=== PATIENT | female | born 1990 | race Caucasian/White ===

== ENCOUNTER → 2021-02-25 11:15 | Outpatient (BNVA) | payer OTHER, SELFPAY | PROVIDERS: Visit Provider Emergency Medicine | DX: Z20.822 Contact with and (suspected) exposure to COVID-19 (principal) | CPT/HCPCS: 87635 ==

== ENCOUNTER 2021-09-16 12:04 | Outpatient (CLI) | payer MEDICAID, SELFPAY ==
[2021-09-16 12:32] VITALS: BMI 36.3
--- NOTE | 2021-09-16 12:35 | ECG_ITS ---
[facility] Test Date: 2021-09-16 Pat Name: Cesilia Menendez Department: Room: Gender: Female Manager Molecular: Alfreda Monterroso : 1990 Requested By: Gail Cornejo Order Number: [id number] Anna MD: Cristy Gandhi M.D. Interpretive Statements NAME OF STUDY: TREADMILL STRESS ECHOCARDIOGRAM INDICATION: Chest Pain, PROCEDURE: The baseline electrocardiogram showed normal sinus rhythm with normal ST-Ts. At the baseline, the patient's blood pressure was 101/62 mm Hg with a heart rate of 76. The patient exercised for 7 minutes and 1 seconds on a standard Reese protocol. Patient attained a maximum heart rate of 167 beats per minute(88% of the maximum predicted heart rate) with a blood pressure at the peak exercise of 164/84 mm Hg. The EKG at the peak exercise revealed no significant changes. Patient did not have any chest pain or any significant arrhythmis with the exercise Sestamibi was injected 1 minute prior to the peak exercise During the recovery phase, there were no new changes. Blood pressure at the end of the recovery phase was 105/58 mm Hg with a heart rate of 51 per minute. The echocardiographic pictures were taken at the baseline, peak exercise and during the recovery phase CONCLUSION: 1. Normal EKG response with the treadmill exercise 2. No exercise-induced chest pain or cardiac arrhythmia 3. Fair exercise tolerance, attained a maximum of 10.2 METs 4. The echocardiographic pictures were taken at the standard views. see separate report. Electronically Signed On 09-19-2021 13:18:21 CDT by Cristy Gandhi M.D. [id number]
--- NOTE | 2021-09-16 12:35 | USCV_ITS ---
Stress Echo Cesilia Menendez Age: 31 Gender: F : 1990 Exam Date: 09/16/2021 12:51 Ordering Phys: Gail Mccollum Technologist: Ivanna Hoff Exam Location: [facility] Indication: CHEST PAIN Rhythm: Sinus Patient History: Chest pain/pressure Cardiac Medications: Medications in past 24 hours: Contrast: Stress Results Protocol: Reese Total dose(mL): Exercise Duration (min:sec): 7:00 METS: 10.2 Resting HR: 74 Resting BP: 126 / 70 Peak HR: 167 Peak BP: 183 / 84 Max Predicted HR: 189 88 % Max Predicted HR Target HR: 161 Double Product: 04852 Stress Summary: The patient's target heart rate was achieved BP Response: Normal Reason for Termination: Maximal effort/unable to continue, Test terminated after reaching maximum heart rate Cardiac Symptoms: Chest pressure ECG Analysis Resting ECG: Please see separate report Stress ECG: Please see separate report Arrhythmia: Please see separate report MEASUREMENTS (Male/Female) Normal Values FINDINGS The baseline echocardiogram revealed normal LV size with ejection fraction of around 50 to 55%. Related hypokinesia of the septum was noted. With the peak exercise, there was good augmentation of all the segments with no exercise-induced wall motion abnormalities. During the recovery phase, the segmental wall motion reverted back to the baseline CONCLUSIONS 1. Normal echocardiographic response to exercise. 2. No significant coronary ischemia, based on the above findings. 3. For the EKG response to exercise, please refer to separate report Dr Cristy Gandhi MD [facility] (Electronically Signed) Final Date: 17 September 2021 17:27 S
[2021-09-16 13:37] VITALS: BP 105/58; PULSE 90
== END 2021-09-16 12:05 | disposition home or self-care (01) ==
LOC: CDL 12:07
PROVIDERS: Visit Provider Nurse Practitioner Family
DX: R07.89 Other chest pain (principal)
CPT/HCPCS: 93017; 93350

== ENCOUNTER → 2022-01-02 11:31 | Outpatient (BNVA) | payer MEDICAID, SELFPAY | PROVIDERS: Visit Provider Emergency Medicine | DX: R31.9 Hematuria, unspecified (principal) | CPT/HCPCS: 81000 ==

== ENCOUNTER 2025-04-19 00:11 | Emergency (ER) | payer OTHER, SELFPAY ==
--- OUTSIDE RECORDS SUMMARY | 2022-12-16 04:20 | XMS_ITS | Continuity of Care Document ---
Author Organization [facility] cine Address [address] [place] [address] Phone Care Team Providers Care Public Address System Mechanic Name Role Phone Eva Roth Unavailable Unavailable Procedures Procedure Date OFFICE/OUTPATIENT VISIT, EST Results Test Name Date and Time Measure Units Reference Range Abnormal Flag Status Commen ts Panel Description: [facility] COVID-19 Antigen Rapi d Test Final Covid 09:32:00 Neg NEG Final Advance Directives Directive Yes / No Effective Date File Name No Information Encounters Encounter Description Practice Location Reason(s) For Visit Diagnoses Date Provider Providers Copied on Encounter OFFICE/OUTPAT IENT VISIT, EST [facility], [address], [place], [id number], tel:[phone] [facility] Covid Test (chief complaint) Contact w and exposure to oth viral communicable diseases Radha Velasquez. [address] [place], [address], [place]. tel:[phone] Referring Provider: Eva Garcia [address] [place], [address]. tel:[phone] Family History Family Member Type Diagnosis Age At Onset No Information Payers Payer name Insurance type Covered alliance party ID Authorcarola marylinюлия(s) [employer] [id number] [place] Medicaid [id number] Social History Type Description Quantity Date Captured Comments Alcohol Use Details Unknown Caffeine Use Details Unknown Tobacco Use Status No Information Smoking Status No Information Sex Female Chief Complaint And Reason For Visit From encounter dated '12/16/2022 09:20'. Covid Test (chief complaint). Description: The symptoms began 1 day ago and generally lasts 1 Day. Pt presents to the office to have a covid test performed.. Symptoms started yesterday. Reason For Referral Reason For Referral No Information History Of Present Illness Encounter Date Complaint History Of Prese nt Illness Covid Test The symptoms beg an 1 day ago and generally lasts 1 Day. Pt presents to the office to have a covid test performed.. Symptoms started yesterday. Functional Status Date Functional Assessmen t No Information Instructions Date Instruction Additional Infor kashif Pt had a nasal swab performed. The results were negative. The pt was given a copy of the results. Related to Contact w and exposure to oth viral communicable diseases Assessments Type Assessment Date assessment Contact w and exposure to oth vi ral communicable diseases Patient Care Teams Name Effective Dates (start - stop) Status Members No Information
--- NOTE | 2025-04-19 00:30 | XRR_ITS ---
PROCEDURE INFORMATION: Exam: XR Left Ribs with PA Chest Exam date and time: 04/19/2025 12:39 AM Age: 34 years old Clinical indication: Injury or trauma; Fall; Rib area, left side; Blunt trauma TECHNIQUE: Imaging protocol: Radiologic exam of the left ribs with PA chest. Views: 3 views COMPARISON: No relevant prior studies available. FINDINGS: Lungs: Unremarkable. No consolidation. Pleural spaces: Unremarkable. No pleural effusion. No pneumothorax. Heart/Mediastinum: Unremarkable. No cardiomegaly. Bones/joints: Unremarkable. XR/XR ribs LT mn 3V w CXR1V [id number] IMPRESSION: No acute findings.
--- NOTE | 2025-04-19 00:30 | XRR_ITS ---
PROCEDURE INFORMATION: Exam: XR Left Hip Exam date and time: 04/19/2025 12:50 AM Age: 34 years old Clinical indication: Injury or trauma; Fall; Blunt trauma (contusions or hematomas); Left; Hip TECHNIQUE: Imaging protocol: Radiologic exam of the left hip. Views: 2 or 3 views hip with pelvis when performed. COMPARISON: No relevant prior studies available. FINDINGS: Bones/joints: Unremarkable. No acute fracture. Soft tissues: Unremarkable. XR/XR hip LT 2-3V wo/w pel* [id number] IMPRESSION: No acute findings. If high clinical concern for acute osseous injury is present, consider CT left hip without contrast to evaluate for occult osseous injury.
[2025-04-19 00:32] VITALS: BP 115/87; PULSE 83; RESP 20; TEMP 36.8; O2SAT 100; BMI 38.0
--- NOTE | 2025-04-19 00:33 | ED_ITS ---
HPI - Fall General: Chief Complaint: Fall Stated Complaint: fall on stairs landed ribs and tail bone Time Seen by Provider: 04/19/25 00:23 Source: patient Mode of arrival: ambulatory Limitations: no limitations History of Present Illness: 34-year-old female states that she had s lipped down stairs roughly 2 hours ago. States she landed on her left hip along with left posterior ribs states she has pain mainly in her left hip some mild pain left ribs. She denies any hitting her head she denies any neck pain denies any back pain. States she is able to ambulate but it hurts worse when she ambulates she rates her pain a 6 out of 10 currently it is improved with rest Related Data Previous Rx's ?Medication ?Instructions ?Recorded phenazopyridine 100 mg tablet 100 mg PO TID 6 doses #6 tabs 01/02/22 (Pyridium) sulfamethoxazole 800 1 tab PO BID 7 days #14 tabs 01/02/22 mg-trimethoprim 160 mg tablet naproxen 500 mg tablet (Naprosyn) 500 mg PO BID PRN pa in #20 tabs 04/19/25 Allergies Allergy/AdvReac Type Severity Reaction Status Date / Time codeine Allergy Mild itching Verified 04/19/25 00:41 Penicillins Allergy Mild hives Verified 04/19/25 00:41 prednisone Allergy Mild hives Verified 04/19/25 00:41 Review of Systems Musc: Reports: extremity pain PFS ED PFSH: Social History Smoking and tobacco/nicotine status: never used tobacco/nicotine Physical Exam Const: COMMON NORMALS: no acute distress, patient oriented x3 and healthy appearing HENMT: COMMON NORMALS: normocephalic and atraumatic HEAD & SCALP: normocephalic and atraumatic Neck/C-Spine: COMMON NORMALS: full ROM and supple Chest: COMMONS NORMALS: normal inspection of the chest OTHER: Tenderness to left lateral and posterior lower ribs Resp: COMMON NORMALS: normal respiratory effort, No retractions, No use of accessory muscles and clear to auscultation bilaterally AUSCULTATION: clear to auscultation bilaterally Cardio: COMMON NORMALS: regular rate RATE: regular rate GI: COMMON NORMALS: Normal to inspection, nondistended, normoactive bowel sounds present, Soft to palpation, non-tender and no masses PALPATION: Yes Soft to palpation Back/Pelvis: THORACIC SPINE/UPPER BACK: No thoracic spinal tenderness LUMBAR SPINE/LOWER BACK: No lumbar spinal tenderness Extremity: COMMON NORMALS: normal to inspection and full ROM NARRATIVE EXTREMITY EXAM: Tenderness to left lateral hip no obvious deformity Neuro: COMMON NORMALS: patient oriented x3, moves all extremities and no focal motor deficits Psych: COMMON NORMALS: mental status grossly normal, Normal thought process present and cooperative THOUGHT PROCESS: Normal thought process present Skin: COMMON NORMALS: no rashes or lesions noted and no wounds GENERAL SKIN EXAM: no rashes or lesions noted Course Vital Signs: Vital signs: Vital Signs Temperature 98.3 F 04/19/25 00:32 Pulse Rate 77 04/19/25 01:03 Respiratory Rate 20 H 04/19/25 00:32 Blood Pressure 117/82 04/19/25 01:03 Pulse Oximetry 98 04/19/25 01:03 MDM - Fall Medical Decision Making Patient presents after a fall down the steps landing on her left hip having some left hip and left-sided chest pain. Differential included hip dislocation, hip fracture, contusion, rib fracture. Patient no other injuries had no head neck or back pain images here I reviewed x-ray hip showed no acute fracture, x-ray ribs showed no acute fracture or pneumothorax. Likely has a hip contusion from the fall she is ambulatory here she is to rest ice we will prescribe her Naprosyn I did go over her x-ray findings and treatment she understands and agrees to plan Medical Records I reviewed the patient's medical records. Lab Data Radiology Impressions Hip/Pelvis X-Ray 04/19/25 00:30 IMPRESSION: No acute findings. If high clinical concern for acute osseous injury is present, consider CT left hip without contrast to evaluate for occult osseous injury. Ribs X-Ray 04/19/25 00:30 IMPRESSION: No acute findings. All radiology interpretation(s) finalized by discharge Discharge Plan Discharge Patient Disposition: Home Clinical Impression: Fall Contusion of left hip Qualifiers: Encounter type: initial encounter Qualified Code(s): S70.02XA - Contusion of left hip, initial encounter Condition: Stable Prescriptions: New naproxen [Naprosyn] 500 mg tablet 500 mg PO BID PRN (Reason: pain) Qty: 20 0RF No Action phenazopyridine [Pyridium] 100 mg tablet 100 mg PO TID Qty: 6 0RF sulfamethoxazole-trimethoprim 800-160 mg tablet 1 tab PO BID 7 Days Qty: 14 0RF Discharge Orders: Discharge ED (Routine); Ordered 04/19/25 Ordered By: Akash Rios Discharge Diet: Advance as tolerated Discharge Activity: Resume usual activity Patient Instructions: Hip Contusion (ED) Print Language: Citizen Of [place] Coding Level of Care Code ED Payable Representative for Delfino Warren
[2025-04-19] MEDS: HYDROcodone-acetaminophen 5-325 mg Tablet 1 TAB PO (00:51)
[2025-04-19 01:03] VITALS: BP 117/82; PULSE 77; O2SAT 98
[2025-04-19 01:20] VITALS: BP 117/82; PULSE 84; O2SAT 100
== END 2025-04-19 01:25 | disposition home or self-care (01) ==
PROVIDERS: Emergency Provider Emergency Medicine
DX: S70.02XA Contusion of left hip, initial encounter (principal); W10.9XXA Fall (on) (from) unspecified stairs and steps, initial encounter
CPT/HCPCS: 71101; 73502; 99284; J9999